=== PATIENT | female | born 1990 | race Caucasian/White ===

== ENCOUNTER → 2016-09-11 | Outpatient (CLI) | payer OTHER ==
[~2016-09-11] MED LIST: BCP PO; DCS100C PO; DOCU100C37 PO; HYDR-3720 PO; IBP800T PO; IBUP-1780 PO; OXYC-465 PO; PREN1TAB19 PO; PREN1TAB71 PO
--- NOTE | 2016-09-11 13:34 | Diagnostic Imaging Report ---
PROCEDURE: US Thyroid. TECHNIQUE: Multiple real-time grayscale images were obtained of the thyroid in various projections. INDICATION: Anterior neck fullness, dysphagia. COMPARISON: None. DISCUSSION: The thyroid gland is normal in echotexture and size. No discrete nodule identified. The right thyroid measures 5.4 x 1.4 x 1.5 cm. The left thyroid measures 4.4 x 1.2 x 1.6 cm. There are bilateral lymph nodes present anteriorly. The lymph node on the left appears to account for the patient's palpable finding. The left lymph node measures 1.3 x 0.6 x 1.5 cm. The right lymph node measures 1.2 x 0.4 x 1.5 cm. Fatty beni are maintained within the lymph nodes which show a mildly thickened cortex. Lymph nodes are likely reactive though indeterminate. Recommend clinical correlation and continued sonographic followup as indicated. IMPRESSION: 1. Prominent bilateral anterior lymph nodes, likely reactive though of uncertain etiology. 2. Normal sonographic appearance of the thyroid gland. Dictated by: Dictated on workstation # [id number]
== END ==
LOC: RAD 12:10
PROVIDERS: ATTEND Nurse Practitioner Family
DX: E07.89 Other specified disorders of thyroid (principal)
CPT/HCPCS: 76536

== ENCOUNTER 2021-05-01 05:35 | Outpatient (CLI) | payer OTHER ==
[~2021-05-01] VITALS: Ht 160 cm; Wt 49.9 kg
[~2021-05-01 05:35] MED LIST changes: -OXYC-465 PO; +OXYC-556 PO
[2021-05-01] MEDS ORDERED: NORG1TAB14 PO (10:50)
== END 2021-05-01 10:57 | disposition home or self-care (01) ==
LOC: PREOP 05:35
PROVIDERS: ATTEND Surgery
DX: Z01.818 Encounter for other preprocedural examination (principal)

== ENCOUNTER 2021-05-08 07:10 | Day surgery (SDC) | payer OTHER ==
[~2021-05-08] VITALS: Ht 160 cm; Wt 49.9 kg
[2021-05-08] VITALS (11 sets, daily range): BP systolic 91–123; BP diastolic 55–87
[~2021-05-08 07:10] MED LIST changes: +NORG1TAB14 PO
[2021-05-08] MEDS: LACTATED RINGERS 1,000 ML IV PRN ×2 (07:44→09:54)
[2021-05-08] MEDS ORDERED: ceFAZolin INJECTION 1,000 MG VIAL IV ONE (07:45)
--- NOTE | 2021-05-08 07:59 | Progress Note-Pre Operative ---
Pre-Operative Progress Note H&P Reviewed The H&P was reviewed, patient examined and no changes noted. Date Seen by Provider: May 08, 2021 Time Seen by Provider: 07:59 Date H&P Reviewed: May 08, 2021 Time H&P Reviewed: 07:59 Pre-Operative Diagnosis: left face mass, left thigh lipoma LONNY CULP DO May 08, 2021 07:59
[2021-05-08] MEDS ORDERED: LIDOCAINE/EPI 1%-1:100,000 (XYLOCAINE) 20ML ONE (08:11)
[2021-05-08] MEDS ORDERED: fentaNYL INJ 100 MCG/2 ML AMP ONE (08:50)
[2021-05-08] MEDS ORDERED: MIDAZOLAM 2 MG/2 ML (VERSED) VIAL ONE (08:50)
[2021-05-08] MEDS ORDERED: LIDOCAINE PF 2% 5 ML (XYLOCAINE) VIAL ONE (08:50)
[2021-05-08] MEDS ORDERED: proPOfol 200 MG/20 ML (DIPRIVAN) VIAL IV ONE (08:50)
[2021-05-08] MEDS ORDERED: ONDANSETRON 4 MG/2 ML (SDV) Z0FRAN ONE (08:50)
[2021-05-08] MEDS ORDERED: MUPIROCIN 2% OINT 22 GM (BACTROBAN) TUBE ONE (10:01)
[2021-05-08] MEDS ORDERED: SEVOFLURANE (ULTANE) 15 ML INHAL SOLN ONE (10:04)
--- NOTE | 2021-05-08 10:08 | Progress Note-Post Operative ---
Post-Operative Progess Note Surgeon (s)/Design Eng (s) Surgeon LONNY CULP DO Design Eng: na Pre-Operative Diagnosis left face mass, left thigh lipoma Post-Operative Diagnosis same Procedure & Operative Findings Date of Procedure 05/08/21 Procedure Performed/Findings excision left thigh lipoma [id number], excision left face mass 2 mm Anesthesia Type general Estimated Blood Loss Estimated blood loss (mL): minimal Specimens/Packing Specimens Removed left thigh lipoma, left face mass LONNY CULP DO May 08, 2021 10:08
--- NOTE | 2021-05-08 10:10 | Discharge Inst-Simple/Standard ---
Discharge Inst-Standard Patient Instructions/Follow Up Plan of Care/Instructions/FU: 1 week Maureen Activity as Tolerated: No Discharge Diet: Regular Diet Other Inst to Patient Follow up Appt: Make appointment for 1 week. Instructions: No strenuous activity. May shower in 24 hours, no tub bath or soaking. Use incentive spirometer at home as directed. No Smoking Skin/Wound Care: You have special glue over your incision that will fall off on it's own. Sutures in face need removed 1 week. Symptoms to Report: Appetite Changes, Extremity Discoloration, Numbness/Tingling, Swelling Increased, Bleeding Excessive, Eyesight Changes, Pain Increased, Urine Color Change, Constipation(Persistent), Fever over 101 degree F, Pain/Pressure in chest, Urinating Difficulty, Cough Up/Vomit Blood, Heart Beat Irreg/Pounding, Pain/Pressure in jaw, Vaginal Bleeding Increase, Cramps in feet or legs, Lightheadedness, Pain/Pressure in shoulder, Diarrhea(Persistent), Memory Changes Suddenly, Questions/Concerns, Weight gain consecutive days, Dizziness/Fainting, Nausea/Vomiting, Shortness of Breath, Weight gain over 2 pounds If questions or concerns contact your physician Or seek help at emergency department. LONNY CULP DO May 08, 2021 10:10
[2021-05-08] MEDS ORDERED: morphine INJ 10 MG/ML 1ML (SYR OR VIAL) IVP ONE (10:15)
[2021-05-08] MEDS ORDERED: MEPERIDINE (DEMEROL) INJ 50 MG/ML IVP ONE (10:15)
[2021-05-08] MEDS ORDERED: ONDANSETRON 4 MG/2 ML (SDV) Z0FRAN IVP PRN (10:15)
--- NOTE | 2021-05-08 11:23 | Anesthesia-General Post-Op ---
General Patient Condition Mental Status/LOC: Same as Preop Cardiovascular: Satisfactory Nausea/Vomiting: Absent Respiratory: Satisfactory Pain: Controlled Complications: Absent Post Op Complications Complications None Follow Up Care/Instructions Patient Instructions None needed. Anesthesia/Patient Condition Patient Condition Patient is doing well, no complaints, stable vital signs, no apparent adverse anesthesia problems. No complications reported per nursing. RADHIKA SPRING CRNA May 08, 2021 11:23
--- NOTE | 2021-05-08 22:59 | OPERATIVE REPORT ---
DATE OF SERVICE: 05/08/2021 PREOPERATIVE DIAGNOSIS: Left thigh lipoma, left face mass. POSTOPERATIVE DIAGNOSIS: Left thigh lipoma, left face mass. PROCEDURE: Excision of left thigh lipoma, 2.5 x 1.3 cm and left face mass 2 mm. SURGEON: Lonny Reddy DO ANESTHESIA: General. ESTIMATED BLOOD LOSS: Minimal. COMPLICATIONS: None. INDICATIONS: The patient is a 30-year-old female with a left thigh lipoma and a small mass on the left side of face, which she elected to have it removed. She understands risks and benefits of procedures and wished to proceed with procedure. Consent was signed in the chart. DESCRIPTION OF PROCEDURE: The patient was taken to the operating suite. She was prepped and draped in sterile fashion. Surgical pause was performed. Local anesthetic was infiltrated around the left thigh area. An elliptical incision was made around the previous scar, removing skin and subcutaneous tissue measuring 2.5 x 1 x 3 cm. The subcutaneous tissue, felt like scar and some lipomatous tissue. This was taken all the way down to the fascia, which no other evidence of any masses present. The wound was then irrigated with copious amounts of irrigation and hemostasis was achieved. The subcutaneous tissues were then reapproximated using 3-0 Vicryl in a subcuticular fashion. The skin was then closed using Skin Affix. The left side of face has a very small palpable mass present over the palpable area. A 51 scalpel was used to make a small skin incision at. A hemostat was used to dissect down through the subcutaneous tissues. A very small 2 mm mass was felt, this is also right near the bone as well and blunt dissection was taken around and removed. No other palpable abnormalities felt. The wound was then irrigated. Local anesthetic was infiltrated around the incision and the skin was then closed using 5-0 Prolene in simple interrupted fashion. Sterile bandages were applied. The patient tolerated procedure well without any complications, taken to the recovery room in stable condition. Job ID: [id number] DocumentID: [id number] Dictated Date: 05/08/2021 15:20:25 Offset Plate Preparation Supervisor Date: 05/08/2021 22:59:04 Dictated By: LONNY REDDY DO
== END 2021-05-08 12:00 | disposition home or self-care (01) ==
LOC: SDC 07:10
PROVIDERS: ATTEND Surgery
DX: D17.24 Benign lipomatous neoplasm of skin and subcutaneous tissue of left leg (principal); L90.5 Scar conditions and fibrosis of skin; Z79.3 Long term (current) use of hormonal contraceptives
CPT/HCPCS: 84703; 87081; 88304; 88305